=== PATIENT | male | born 1990 | race Caucasian/White ===

== ENCOUNTER 2020-01-27 22:07 | Emergency (ER) | payer SELFPAY ==
[2020-01-27 22:09] VITALS: BP 131/74; PULSE 79; RESP 16; TEMP 35.8; O2SAT 96; BMI 23.6
[2020-01-27] MEDS: Tetracaine HCl/PF 0.5% Oph Sol 4 ML DROPS 2 DROP EYE-RIGHT (23:23)
[2020-01-27] MEDS: Eye Irrigation Solution 118 ML IRRIG.SOLN 1 APPL EYE-RIGHT (23:23)
[2020-01-27] MEDS: Fluorescein Sodium STRIP 1 STRIP EYE-RIGHT (23:23)
[2020-01-27] MEDS: Erythromycin Base 0.5% Oph Oin 1 GM TUBE 1 CM EYE-LEFT (23:24)
--- NOTE | 2020-01-27 23:29 | ED.EYEPROB ---
HPI - Eye Problem General Chief complaint: Eye Problems Stated complaint: FB object in eye Time Seen by Provider: 01/27/20 23:00 Source: patient Mode of arrival: ambulatory Limitations: no limitations History of Present Illness HPI Narrative: 29-year-old male with no significant past medical history presents with left eye injury and suspected foreign body. Use under his car grinding metal felt a piece of metal and in his eye. This happened at 2:30 p.m. he tried using a magnet to remove the metal piece, he also flushed his eye out several times prior to arrival. He has no other complaints, and has not had a recent tetanus vaccine. chief complaint: eye pain and eye injury Onset (ago): hour(s) Onset description: sudden Duration: constant Location: left eye Eye Symptoms: burning, redness, pain and foreign body sensation Place: home Mechanism: occurred while hammering/grinding Severity: severe Severity scale (1-10): 10 If Pain, Quality: sharp and burning Associated symptoms: none Treatments Prior to Arrival: irrigated eye Related Data Patient tetanus UTD: No Previous Rx's Medication Instructions Recorded erythromycin 1 appl OPHTHALMIC-LEFT Q4H 7 Days 01/27/20 #1 g Allergies Allergy/AdvReac Type Severity Reaction Status Date / Time No Known Allergies Allergy Verified 01/27/20 22:08 Review of Systems Review of Systems: Constitutional: No Fever, No Chills ENT/Mouth: No Ear Pain, No Hoarseness, No sore throat Eyes: Positive left Eye Pain, No Swelling, No Redness, No Foreign Body Cardiovascular: No Chest Pain, No SOB Respiratory: No Cough, No Dyspnea Gastrointestinal: No Nausea, No Vomiting, No Diarrhea, No abdominal Pain Genitourinary: No Dysuria, No Hematuria Musculoskeletal: no joint pain, No Myalgias, No Joint Swelling Skin: No Skin lacerations, No rash Neuro: No Weakness, No Numbness, No Paresthesias, No Loss of Consciousness, No Dizziness, No Headache Psych: No Anxiety/Panic, No Depression Heme/Lymph: no easy bruising, no Lymphadenopathy Endocrine: No Polyuria, No Polydipsia Yes all other systems are reviewed and are negative PMFSH Past Medical History Attestation statement: The following information was validated with the patient. Medical History Anxiety Drug abuse Social History Social History Smoked in Last 30 Days: No Use of substances other than those prescribed or required for medical reasons: No Advance Directives: No Advance Directives Information Provided: Yes Physical Exam Vital Signs: Vital Signs: Last Vital Signs Temp 96.4 F L 01/27/20 22:09 Pulse 79 01/27/20 22:09 Resp 16 01/27/20 22:09 BP 131/74 01/27/20 22:09 Pulse Ox 96 01/27/20 22:09 Body Mass Index 23.6 Appearance: Alert. Oriented X3. No acute distress. Eyes: Pupils equal, round and reactive to light. ENT: Pharynx normal. PERRLA, EOMI, left eye irritation and erythema. Neck: Normal inspection. Neck supple. CVS: Normal heart rate and rhythm. Pulses normal. Respiratory: No respiratory distress. Breath sounds normal. Abdomen: Soft and nontender. Skin: Skin warm and dry. Normal skin color. Normal skin turgor. Extremities: No lower extremity edema. Neuro: No motor deficit. No sensory deficit. Eyes: Visual Lim: normal visual lim by confrontation Alignment and Position: alignment normal and position normal Periorbital: periorbital findings normal Eyelids: Yes eyelids normal Conjunctivae: conjunctival abnormal ( Abrasion) left Sclerae: sclerae normal Pupils: Equal, round and reactive pupils present EOM: EOMs intact bilaterally Direct Ophthalmoscopy: normal light reflex Neuro: Cranial nerves: Yes Equal, round and reactive pupils present Course Course Course Narrative: 29-year-old male with left eye injury from suspected metal fragment. He was grinding metal under his car, was wearing protective eye glasses however the metal fragment went under the lens. He did irrigate his eye several times prior to arrival and tried to use a magnet to remove the piece of metal. I was examined, flushed out with 100 mL of normal saline, tetracaine and fluorescein drops used , eye examined under Wood's lamp, small amount of fluorescein in the inner canthus of the left eye. Eyelids inverted no indication of foreign body or injury to the eyelids. we applied erythromycin eye ointment, and updated Tdap vaccine. No indication of foreign body at time. Patient will follow-up with Dr. Tena tomorrow, detailed description regarding eye care. Patient verbalized understanding of and agrees to plan of care to discharge home. MDM - Eye Problem Differential Diagnosis Differential diagnosis: Likely corneal abrasion and corneal ulcer Medical Records Attestation: I reviewed the patient's medical records. Lab Data Attestation: I reviewed the patient's lab results. Discharge Plan Discharge Clinical Impression: Corneal abrasion Qualifiers: Encounter type: initial encounter Laterality: left Qualified Code(s): S05.02XA - Injury of conjunctiva and corneal abrasion without foreign body, left eye, initial encounter Eye injury, superficial Qualifiers: Encounter type: initial encounter Laterality: left Qualified Code(s): S05.8X2A - Other injuries of left eye and orbit, initial encounter Patient Disposition: Home, Self-Care Instructions: Corneal Abrasion (ED), Eye Foreign Body (ED) Additional Instructions: you were evaluated for a piece of metal in your left eye. We irrigated your eye, you do have a conjunctival abrasion. we did not find any metal fragments. please use erythromycin eye ointment every 4 hours while awake. Please wash Your hands before and after touching her eye. use Tylenol and Motrin as needed for pain management. We updated your tetanus vaccine today. Please follow-up with Dr. Tena,, please call and make an appointment. Thank you for choosing this emergency department for evaluation. Please follow-up with primary care physician as needed. Return to the emergency department for any new, concerning, or worsening symptoms. Prescriptions: New erythromycin 5 mg/gram (0.5 %) ointment 1 appl ophthalmic-Left Q4H 7 Days Qty: 1 RF: 0 Referrals: Marco Tena [Physician] - 2 days ( left corneal abrasion, metal fragment foreign body) Interventions: ED Discharge Assessment Last Done: 01/27/20 23:46 Discharge Date/Time: 01/27/20 23:49
== END 2020-01-27 23:49 | disposition home or self-care (01) ==
PROVIDERS: Emergency Provider Emergency Medicine Emergency Medical Services
DX: S05.02XA Injury of conjunctiva and corneal abrasion without foreign body, left eye, initial encounter (principal); H57.12 Ocular pain, left eye; Y28.9XXA Contact with unspecified sharp object, undetermined intent, initial encounter; Y93.9 Activity, unspecified; Y92.9 Unspecified place or not applicable; Y99.9 Unspecified external cause status; Z23 Encounter for immunization
CPT/HCPCS: 90471; 90715; 99284

== ENCOUNTER → 2022-04-27 14:46 | Outpatient (BNVA) | payer SELFPAY | PROVIDERS: Visit Provider Physician Assistant Medical | DX: Z02.79 Encounter for issue of other medical certificate (principal) ==